=== PATIENT | female | born 1995 | race Caucasian/White ===

== ENCOUNTER 2016-07-08 10:16 | Emergency (ER) | payer MEDICAID, OTHER ==
[2016-07-08 10:24] VITALS: BP 112/73; PULSE 75; RESP 16; TEMP 98.5; O2SAT 99
--- NOTE | 2016-07-08 10:42 | C.PDOC ---
History Of Present Illness 21 yr old female presents to the ER requesting a test. Patient states she took 2 at home test which were positive and just wants to make sure. Patient denies fever, chills, nausea, vomiting, abdominal pain, diarrhea, weakness or numbness. Time Seen by Provider: 07/08/16 10:32 Chief Complaint (Nursing): Medical Clearance History Per: Patient History/Exam Limitations: no limitations Onset/Duration Of Symptoms: Unknown Past Medical History Reviewed: Historical Data, Nursing Documentation, Vital Signs Vital Signs: Last Vital Signs Temp 98.5 F 07/08/16 10:23 Pulse 75 07/08/16 10:23 Resp 16 07/08/16 10:23 BP 112/73 07/08/16 10:23 Pulse Ox 99 07/08/16 11:01 Family History: States: No Known Family Hx - Social History Hx Tobacco Use: Yes (light smoker) Hx Alcohol Use: Yes Hx Substance Use: No - Immunization History Hx Tetanus Toxoid Vaccination: Yes Hx Influenza Vaccination: Yes Hx Pneumococcal Vaccination: No Review Of Systems Except As Marked, All Systems Reviewed And Found Negative. Constitutional: Negative for: Fever, Chills Gastrointestinal: Negative for: Nausea, Vomiting, Abdominal Pain, Diarrhea Neurological: Negative for: Weakness, Numbness Physical Exam - Physical Exam Appears: Well, Non-toxic, No Acute Distress Skin: Warm, Dry Head: Atraumatic, Normacephalic Oral Mucosa: Moist Chest: Symmetrical, No Tenderness Cardiovascular: Rhythm Regular, No Murmur Respiratory: Normal Breath Sounds, No Rales, No Rhonchi, No Stridor, No Wheezing Extremity: Normal ROM, No Swelling Neurological/Psych: Oriented x3, Normal Speech, Normal Motor ED Course And Treatment O2 Sat by Pulse Oximetry: 99 Progress Note: POC was tested positive. Disposition Counseled Patient/Family Regarding: Diagnosis, Need For Followup - Disposition Referrals: Clinic,Med Surg [Primary Care Provider] - Disposition: HOME/ ROUTINE Disposition Time: 10:41 Condition: STABLE Additional Instructions: Follow up with your OBGYN Instructions: (ED) Forms: General Discharge Instructions - Clinical Impression Clinical Impression: - Scribe Statement The provider has reviewed the documentation as recorded by the Raheelibe Magaly James Provider Attestation: All medical record entries made by the Raheelibstefano were at my direction and personally dictated by me. I have reviewed the chart and agree that the record accurately reflects my personal performance of the history, physical exam, medical decision making, and the department course for this patient. I have also personally directed, reviewed, and agree with the discharge instructions and disposition.
== END 2016-07-08 10:47 | disposition home or self-care (01) ==
LOC: C.ER 10:16 → SUPCPDRO 10:16 → C.ER 10:47
DX: Z32.01 Encounter for pregnancy test, result positive (principal)

== ENCOUNTER 2016-08-19 22:56 | Emergency (ER) | payer OTHER ==
[2016-08-19 23:17] VITALS: BP 111/76; PULSE 82; RESP 16; TEMP 98.3
--- NOTE | 2016-08-19 23:23 | C.PDOC ---
History Of Present Illness Patient is a 21 year old female who presents to the ER with a complaint of worsening vaginal bleeding since yesterday. Patient was seen in [facility] yesterday and was diagnosed with a demised. Patient had an US that confirmed an IUP demise at 5-6 weeks; patient had lab results with her. Denies dysuria, abdominal pain or vaginal discharge. Time Seen by Provider: 08/19/16 23:15 Chief Complaint (Nursing): Female Genitourinary History Per: Patient History/Exam Limitations: no limitations Onset/Duration Of Symptoms: Days (Yesterday) Current Symptoms Are (Timing): Still Present Quality Of Discomfort: Unable To Describe Associated Symptoms: denies: Urinary Symptoms, Other (Vaginal discharge, Abdominal pain) Alleviating Factors: None Recent travel outside of the [place]: No Abnormal Vaginal Bleeding: Yes Past Medical History Reviewed: Historical Data, Nursing Documentation, Vital Signs Vital Signs: Last Vital Signs Temp 98.3 F 08/19/16 23:13 Pulse 82 08/19/16 23:13 Resp 16 08/19/16 23:13 BP 111/76 08/19/16 23:13 Pulse Ox 99 08/19/16 23:27 - Medical History PMH: No Chronic Diseases Surgical History: No Surg Hx Family History: States: Unknown Family Hx - Social History Hx Tobacco Use: Yes (light smoker) Hx Alcohol Use: Yes Hx Substance Use: No - Immunization History Hx Tetanus Toxoid Vaccination: Yes Hx Influenza Vaccination: Yes Hx Pneumococcal Vaccination: No Review Of Systems Gastrointestinal: Negative for: Abdominal Pain Genitourinary: Positive for: Vaginal Bleeding. Negative for: Dysuria, Vaginal Discharge Physical Exam - Physical Exam Appears: Non-toxic, No Acute Distress Skin: Normal Color, Warm, Dry Head: Atraumatic, Normacephalic Oral Mucosa: Moist Chest: Symmetrical, No Tenderness Cardiovascular: Rhythm Regular, No Murmur Respiratory: Normal Breath Sounds, No Rales, No Rhonchi, No Wheezing Gastrointestinal/Abdominal: Soft, No Tenderness Pelvic: Other (Deferred) Neurological/Psych: Oriented x3, Normal Speech, Normal Cognition ED Course And Treatment O2 Sat by Pulse Oximetry: 100 (Room air) Pulse Ox Interpretation: Normal Progress Note: Patient declined work up. Medical Decision Making Medical Decision Making: dx with demise of IUP yesterday (US c/w 6 wks of 11 wk etimated gestation ) @ [facility], today with menstrual like bleeding, c/w AB in progress Pt educated and defers repeat w/u at this time. As this is with early demise x 2, salpingography may be indicated. Disposition Doctor Will See Patient In The: Office Counseled Patient/Family Regarding: Studies Performed, Diagnosis - [facility] [Outside] Disposition: HOME/ ROUTINE Disposition Time: 23:23 Condition: GOOD Additional Instructions: Expect heavier and prolonged menstrual-like bleeding Follow-up with outpatient OBGYN As this is potentially 2nd early demise, consider salpingography. Instructions: Spontaneous Miscarriage (ED) - Clinical Impression Clinical Impression: Threatened in early - Scribe Statement The provider has reviewed the documentation as recorded by the Scribe Theron Peace All medical record entries made by the Scribe were at my direction and personally dictated by me. I have reviewed the chart and agree that the record accurately reflects my personal performance of the history, physical exam, medical decision making, and the department course for this patient. I have also personally directed, reviewed, and agree with the discharge instructions and disposition.
[2016-08-20 04:37] VITALS: O2SAT 100
== END 2016-08-19 23:27 | disposition home or self-care (01) ==
LOC: C.ER 22:56
DX: O20.0 Threatened abortion (principal); Z3A.01 Less than 8 weeks gestation of pregnancy

== ENCOUNTER 2016-12-04 01:31 | Emergency (ER) | payer OTHER ==
[2016-12-04 02:00] LABS: RBC URINE 63 /hpf (0-3); URINE BILIRUBIN NEGATIVE (NEGATIVE); URINE BLOOD 2+ (NEGATIVE); URINE COLOR Yellow (YELLOW); URINE GLUCOSE (UA) NORMAL (Normal); URINE KETONE NEGATIVE (NEGATIVE); URINE LEUKOCYTE ESTERASE 3+ Leu/uL (Negative); URINE PROTEIN 1+ mg/dL (NEGATIVE); URINE UROBILINOGEN NORMAL mg/dL (0.2-1.0); WBC URINE 233 /hpf (0-5)
[2016-12-04] MEDS ORDERED: Sodium Chloride 0.9% 1,000 ML IV ONE (02:04)
[2016-12-04] MEDS ORDERED: Sodium Chloride 0.9% 1,000 ML ONE (02:12)
[2016-12-04 02:18] LABS: BASO # 0.1 K/uL (0.0-0.2); BASO % 0.6 % (0.0-2.0); EOS # 0.1 K/uL (0.0-0.7); EOS % 0.7 % (0.0-4.0); HEMATOCRIT 43.3 % (34.0-47.0); LYMPH # 1.7 K/uL (1.0-4.3); MEAN CELL VOLUME 87.4 fL (81.0-99.0); MEAN CORPUSCULAR HEMOGLOBIN 30.6 pg (27.0-31.0); MEAN PLATELET VOLUME 10.1 fL (7.2-11.7); MONO # 0.9 K/uL (0.0-0.8); MONO % 7.1 % (0.0-10.0); NRBC % 0.1 % (0.0-2.0); RED CELL DISTRIBUTION WIDTH 13.8 % (11.5-14.5); WHITE BLOOD COUNT 12.8 K/uL (4.8-10.8)
[2016-12-04 02:25] LABS: CHLORIDE 98 mmol/L (98-107); POTASSIUM 3.9 mmol/L (3.6-5.2); SODIUM 143 mmol/L (132-148)
[2016-12-04 02:27] LABS: BILIRUBIN,TOTAL 0.6 mg/dL (0.2-1.3); GFR AFRICAN-AMERICAN > 60
[2016-12-04 02:28] LABS: ALB/GLOB RATIO 1.2 (1.0-2.1); ALKALINE PHOSPHATASE 93 U/L (38-126); ALT/SGPT 43 U/L (9-52); AST/SGOT 26 U/L (14-36); BLOOD UREA NITROGEN 9 mg/dL (7-17); CARBON DIOXIDE 25 mmol/L (22-30); GLUCOSE,RANDOM 88 mg/dL (65-105); TOTAL PROTEIN 8.9 g/dL (6.3-8.3)
[2016-12-04] MEDS ORDERED: Iodixanol 320 MG/ML 100 ML BOTTLE IV ONE (03:47)
--- NOTE | 2016-12-04 04:26 | CT ---
EXAM: CT Abdomen and Pelvis With Intravenous Contrast CLINICAL HISTORY: 21 years old, female; Pain; Abdominal pain; Generalized; Additional info: Abd pain TECHNIQUE: Axial computed tomography images of the abdomen and pelvis with intravenous contrast. All CT scans at this facility use one or more dose reduction techniques, viz.: automated exposure control; ma/kV adjustment per patient size (including targeted exams where dose is matched to indication; i.e. head); or iterative reconstruction technique. Coronal and sagittal reformatted images were created and reviewed. CONTRAST: 100 mL of [id number] administered intravenously. COMPARISON: No relevant prior studies available. FINDINGS: Lower thorax: No acute findings. ABDOMEN: Liver: Mild fatty infiltration. Gallbladder and bile ducts: No calcified stones. No ductal dilation. Pancreas: No ductal dilation. No mass. Spleen: Mild splenomegaly, AP dimension. Adrenals: No mass. Kidneys and ureters: No mass. No hydronephrosis. Stomach and bowel: No definite mural thickening. No obstruction. Appendix: Normal caliber. No inflammation. PELVIS: Bladder: Borderline bladder wall thickening, up to 5 mm. Incomplete distention, limiting evaluation. Reproductive: Unremarkable as visualized. ABDOMEN and PELVIS: Intraperitoneal space: Trace free fluid within pelvis. No free air. Bones/joints: No acute fracture. Soft tissues: Unremarkable. Vasculature: Unremarkable. No aneurysm. Lymph nodes: Several subcentimeter short axis mesenteric lymph nodes, nonspecific. IMPRESSION: 1. Possible mesenteric adenitis. Clinical correlation is needed. 2. Mild cystitis vs underdistention. Correlate with urinalysis. 3. Incidental/non-acute findings are described above.
--- NOTE | 2016-12-04 04:36 | C.PDOC ---
History Of Present Illness 21 year old female who presents to the ER with a complaint of lower intermittent abdominal pain since Sunday that she describes as sharp and intermittent. Patient states the pain is worse on the right than the left and is associated with dysuria and frequency. Denies fever or vaginal discharge. Time Seen by Provider: 12/04/16 01:34 Chief Complaint (Nursing): Female Genitourinary History Per: Patient History/Exam Limitations: no limitations Onset/Duration Of Symptoms: Days, Intermittent Episodes Current Symptoms Are (Timing): Still Present Location Of Pain/Discomfort: RUQ, LUQ Radiation Of Pain To:: None Quality Of Discomfort: Sharp Associated Symptoms: Urinary Symptoms (Dysuria, frequency). denies: Fever, Other (Vaginal discharge) Exacerbating Factors: None Alleviating Factors: None Recent travel outside of the [place]: No Abnormal Vaginal Bleeding: No Past Medical History Reviewed: Historical Data, Nursing Documentation, Vital Signs Vital Signs: Last Vital Signs Temp 97.8 F 12/04/16 04:48 Pulse 96 H 12/04/16 04:48 Resp 20 12/04/16 04:48 BP 103/70 12/04/16 04:48 Pulse Ox 99 12/04/16 05:16 - Medical History PMH: No Chronic Diseases Surgical History: No Surg Hx Family History: States: Unknown Family Hx - Social History Hx Tobacco Use: Yes (light smoker) Hx Alcohol Use: Yes Hx Substance Use: No - Immunization History Hx Tetanus Toxoid Vaccination: Yes Hx Influenza Vaccination: No Hx Pneumococcal Vaccination: No Review Of Systems Constitutional: Negative for: Fever, Chills Gastrointestinal: Positive for: Abdominal Pain. Negative for: Vomiting, Diarrhea Genitourinary: Positive for: Dysuria, Frequency. Negative for: Vaginal Discharge Physical Exam - Physical Exam Appears: Well, Non-toxic, No Acute Distress Skin: Normal Color, Warm, Dry Head: Atraumatic, Normacephalic Eye(s): bilateral: Normal Inspection, EOMI Nose: Normal Oral Mucosa: Moist Neck: Normal ROM, Supple Chest: Symmetrical, No Tenderness Cardiovascular: Rhythm Regular Respiratory: Normal Breath Sounds, No Rales, No Rhonchi, No Wheezing Gastrointestinal/Abdominal: Soft, Tenderness (Lower quadrant) Back: No CVA Tenderness, No Vertebral Tenderness Neurological/Psych: Oriented x3, Normal Speech, Normal Cognition ED Course And Treatment - Laboratory Results Result Diagrams: 12/04/16 02:14 10/02/17 02:14 O2 Sat by Pulse Oximetry: 99 (Room air) Pulse Ox Interpretation: Normal - CT Scan/US CT abd/pel Other Rad Studies (CT/US): Read By Radiologist, Radiology Report Reviewed CT/US Interpretation: EXAM: CT Abdomen and Pelvis With Intravenous Contrast. CLINICAL HISTORY: 21 years old, female; Pain; Abdominal pain; Generalized; Additional info: Abd pain. TECHNIQUE: Axial computed tomography images of the abdomen and pelvis with intravenous contrast. All CT. scans at this facility use one or more dose reduction techniques, viz.: automated exposure control;. ma/kV adjustment per patient size (including targeted exams where dose is matched to indication; i.e. head); or iterative reconstruction technique. Coronal and sagittal reformatted images were created and reviewed. CONTRAST: 100 mL of [id number] administered intravenously. COMPARISON: No relevant prior studies available. FINDINGS: Lower thorax: No acute findings. ABDOMEN: Liver : Mild fatty infiltration. Gallbladder and bile ducts: No calcified stones. No ductal dilation. Pancreas: No ductal dilation. No mass. Spleen: Mild splenomegaly, AP dimension. Adrenals: No mass. Kidneys and ureters: No mass. No hydronephrosis. Stomach and bowel: No definite mural thickening. No obstruction. Appendix: Normal caliber. No inflammation. PELVIS: Bladder: Borderline bladder wall thickening, up to 5 mm. Incomplete distention, limiting evaluation. Reproductive: Unremarkable as visualized. ABDOMEN and PELVIS: Intraperitoneal space: Trace free fluid within pelvis. No free air. Bones/ joints: No acute fracture. Soft tissues: Unremarkable. Vasculature: Unremarkable. No aneurysm. Lymph nodes: Several subcentimeter short axis mesenteric lymph nodes, nonspecific. IMPRESSION: 1. Possible mesenteric adenitis. Clinical correlation is needed. 2. Mild cystitis vs underdistention. Correlate with urinalysis. 3. Incidental/non-acute findings are described above. Progress Note: Macrobid, toradol, and IV fluids administered. Urinalysis ordered. On reevaluation, pain still persists, CT abd/pel ordered. CT results reviewed with patient. On reevaluation, patient is resting comfortably, abdomen remains soft, and patient is tolerating PO. Patient feels comfortable going home. Patient will be discharged home. Disposition - Disposition Referrals: Non [facility] Provider, [Primary Care Provider] - Disposition: HOME/ ROUTINE Disposition Time: 04:35 Condition: STABLE Additional Instructions: Follow up with your primary medical doctor or clinic in 2-5 days for further evaluation. Take medications as prescribed. Return to the emergency department at any time if symptoms persist or worsen. Prescriptions: Nitrofurantoin Macrocrystals [Macrobid] 1 cap PO BID #14 cap Instructions: Nitrofurantoin Combination (By mouth), Urinary Tract Infection in Women (ED) Forms: [employer] (Ukrainian) - Clinical Impression Clinical Impression: UTI (urinary tract infection), Abdominal pain - Scribe Statement The provider has reviewed the documentation as recorded by the Scribe Theron Peace All medical record entries made by the Scribe were at my direction and personally dictated by me. I have reviewed the chart and agree that the record accurately reflects my personal performance of the history, physical exam, medical decision making, and the department course for this patient. I have also personally directed, reviewed, and agree with the discharge instructions and disposition.
[2016-12-04 04:53] VITALS: BP 103/70; PULSE 96; RESP 20; TEMP 97.8
[2016-12-04 05:11] VITALS: O2SAT 99
== END 2016-12-04 04:54 | disposition home or self-care (01) ==
LOC: SUPCPDRO 01:31 → C.ER 01:31
DX: N39.0 Urinary tract infection, site not specified (principal); R10.31 Right lower quadrant pain
CPT/HCPCS: 74177; 80053; 81001; 83690; 84703; 85025; 87086; 87181; 96374; 99285; J1885; J7040; Q9967

== ENCOUNTER 2017-06-01 21:24 | Emergency (ER) | payer MEDICAID, OTHER ==
[2017-06-01 21:37] VITALS: RESP 20; O2SAT 99
[2017-06-01 23:13] LABS: SQUAMOUS EPITHIAL 3 /hpf (0-5); URINE BACTERIA RARE (<OCC); URINE BILIRUBIN NEGATIVE (NEGATIVE); URINE BLOOD 1+ (NEGATIVE); URINE CLARITY Clear (Clear); URINE COLOR Straw (YELLOW); URINE GLUCOSE (UA) NORMAL (Normal); URINE LEUKOCYTE ESTERASE 1+ Leu/uL (Negative); URINE PROTEIN NEGATIVE (NEGATIVE); URINE UROBILINOGEN NORMAL mg/dL (0.2-1.0)
[2017-06-01 23:14] LABS: HCG,QUALITATIVE URINE POSITIVE (NEGATIVE)
[2017-06-01 23:18] LABS: BASO % 0.4 % (0.0-2.0); EOS % 0.4 % (0.0-4.0); HEMOGLOBIN 12.7 g/dL (11.0-16.0); LYMPH # 1.9 K/uL (1.0-4.3); LYMPH % 17.3 % (20.0-40.0); MEAN CELL VOLUME 89.5 fL (81.0-99.0); MEAN CORPUSCULAR HEMOGLOBIN 32.3 pg (27.0-31.0); MEAN CORPUSCULAR HGB CONC 36.1 g/dL (33.0-37.0); MONO # 0.5 K/uL (0.0-0.8); MONO % 4.8 % (0.0-10.0); NEUT # 8.4 K/uL (1.8-7.0); NEUT % 77.1 % (50.0-75.0); RBC 3.92 Mil/uL (3.80-5.20); RED CELL DISTRIBUTION WIDTH 13.4 % (11.5-14.5); WHITE BLOOD COUNT 10.9 K/uL (4.8-10.8)
[2017-06-01 23:21] LABS: ALB/GLOB RATIO 1.1 (1.0-2.1); ALBUMIN 4.6 g/dL (3.5-5.0); ALT/SGPT 13 U/L (9-52); AST/SGOT 18 U/L (14-36); BLOOD UREA NITROGEN 3 mg/dL (7-17); CALCIUM 9.3 mg/dl (8.6-10.4); GFR AFRICAN-AMERICAN > 60; GFR NON-AFRICAN AMERICAN > 60
[2017-06-01 23:38] VITALS: BP 100/63; PULSE 74; TEMP 98.2
--- NOTE | 2017-06-02 00:03 | C.PDOC ---
History Of Present Illness 21 y/o female and 2 miscarriages, presents to ED with complaints of bilateral inguinal aching pain that began 1 day ago. Patient reports she had normal 12 week Ultrasound. Denies any other physical complaints. Time Seen by Provider: 06/01/17 22:41 Chief Complaint (Nursing): Abdominal Pain History Per: Patient History/Exam Limitations: no limitations Onset/Duration Of Symptoms: Days (1) Current Symptoms Are (Timing): Still Present Quality Of Discomfort: Aching Associated Symptoms: denies: Fever, Chills, Nausea, Vomiting, Diarrhea Exacerbating Factors: None Alleviating Factors: None Recent travel outside of the [place]: No Abnormal Vaginal Bleeding: No Past Medical History Reviewed: Historical Data, Nursing Documentation, Vital Signs Vital Signs: Last Vital Signs Temp 98.2 F 06/01/17 23:36 Pulse 74 06/01/17 23:36 Resp 20 06/01/17 23:36 BP 100/63 06/01/17 23:36 Pulse Ox 99 06/02/17 00:08 - Medical History PMH: No Chronic Diseases Surgical History: No Surg Hx Family History: States: Unknown Family Hx - Social History Hx Tobacco Use: Yes (light smoker) Hx Alcohol Use: Yes Hx Substance Use: No - Immunization History Hx Tetanus Toxoid Vaccination: Yes Hx Influenza Vaccination: No Hx Pneumococcal Vaccination: No Review Of Systems Constitutional: Negative for: Fever, Chills Cardiovascular: Negative for: Chest Pain Respiratory: Negative for: Shortness of Breath Gastrointestinal: Negative for: Nausea, Vomiting, Abdominal Pain, Diarrhea Genitourinary: Positive for: Other (bilateral inguinal ). Negative for: Vaginal Discharge, Vaginal Bleeding Neurological: Negative for: Weakness, Numbness Physical Exam - Physical Exam Appears: Well, Non-toxic, No Acute Distress, Other (gravid belly) Skin: Normal Color, Warm, Dry Head: Atraumatic, Normacephalic Eye(s): bilateral: Normal Inspection Oral Mucosa: Moist Neck: Supple Chest: Symmetrical, No Tenderness Cardiovascular: Rhythm Regular Respiratory: Normal Breath Sounds, No Decreased Breath Sounds, No Rales, No Rhonchi, No Wheezing Gastrointestinal/Abdominal: Soft, No Tenderness Pelvic: No Vaginal Bleeding, No Vaginal Discharge, No Adnexal Tenderness Extremity: Normal ROM, No Tenderness, No Deformity Neurological/Psych: Oriented x3, Normal Speech, Normal Cognition ED Course And Treatment - Laboratory Results Result Diagrams: 06/01/17 23:00 06/01/17 23:00 O2 Sat by Pulse Oximetry: 99 (RA) Pulse Ox Interpretation: Normal - CT Scan/US US OB Other Rad Studies (CT/US): Read By Radiologist, Radiology Report Reviewed CT/US Interpretation: IMPRESSION: Single living 13 weeks 6 days gestation, posterior placenta which is low lying, this. requires additional followup. Presentation is breech. Medical Decision Making Medical Decision Making: Plan: ordered BBK, urinalysis, blood work, and US of OB and Transvaginal. Disposition Doctor Will See Patient In The: Office Counseled Patient/Family Regarding: Studies Performed, Diagnosis - Disposition Referrals: Shaik Maya MD [Staff Provider] - Disposition: HOME/ ROUTINE Disposition Time: 23:00 Condition: GOOD Additional Instructions: continue vitamins continue normal care 13 weeks, 6 days, progressing normally Instructions: Symptoms, Round Ligament Pain Forms: [facility] (Libyan) - Clinical Impression Clinical Impression: Pain of round ligament affecting , antepartum - Scribe Statement The provider has reviewed the documentation as recorded by the Scribe Dionne Rincon All medical record entries made by the Scribe were at my direction and personally dictated by me. I have reviewed the chart and agree that the record accurately reflects my personal performance of the history, physical exam, medical decision making, and the department course for this patient. I have also personally directed, reviewed, and agree with the discharge instructions and disposition.
--- NOTE | 2017-06-02 00:04 | C.PDOC ---
Time Seen by Provider: 06/01/17 22:41 Chief Complaint (Nursing): Abdominal Pain Past Medical History Vital Signs: Last Vital Signs Temp 98.2 F 06/01/17 23:36 Pulse 74 06/01/17 23:36 Resp 20 06/01/17 23:36 BP 100/63 06/01/17 23:36 Pulse Ox 99 06/02/17 00:08 Family History: States: Unknown Family Hx - Social History Hx Tobacco Use: Yes (light smoker) Hx Alcohol Use: Yes Hx Substance Use: No - Immunization History Hx Tetanus Toxoid Vaccination: Yes Hx Influenza Vaccination: No Hx Pneumococcal Vaccination: No ED Course And Treatment - Laboratory Results Result Diagrams: 06/01/17 23:00 06/01/17 23:00 Lab Interpretation: Normal (QHC,097 H, O+) Urine POC: Positive O2 Sat by Pulse Oximetry: 99 Pulse Ox Interpretation: Normal - Other Rad preg US X-Ray: Read By Radiologist (+IUP, +FHT c/w 13W,6D) Reevaluation Time: 00:04 Reassessment Condition: Improved Medical Decision Making Medical Decision Making: normal IUP, probable round ligament pain tylenol recommended and explained. Disposition Doctor Will See Patient In The: Office Counseled Patient/Family Regarding: Studies Performed, Diagnosis - Disposition Referrals: Shaik Maya MD [Staff Provider] - Disposition Time: 00:05 Additional Instructions: continue vitamins continue normal care 13 weeks, 6 days, progressing normally Instructions: Symptoms, Round Ligament Pain Forms: [facility] (Hebrew) - Clinical Impression Clinical Impression: Pain of round ligament affecting , antepartum
--- NOTE | 2017-06-02 17:00 | US ---
PROCEDURE: OB Pelvic Ultrasound HISTORY: 13 wks, h/o miscarriage x 2 LMP: 02/25/2017 COMPARISON: Comparison made with pelvic ultrasound dated 01/24/2016. FINDINGS: UTERUS: Single living intrauterine gestation in breech presentation. The placenta is low lying which requires monitor on the inferior margin of the placenta with respect to the os at interval. Gestational sac: MSD = 6.41 cm pole: CRL = 7.79 cm = 13 weeks 6 days Heart rate: 142 bpm. age (Ultrasound estimated): Idalia-gestational hemorrhage: None. Date of delivery (Ultrasound estimated) : Uterus is anteverted measuring approximately 13.8 5.3 x 9.8 cm. Normal in size and appearance. The placenta is posterior and low lying in location possibly extending over the cervical os. Follow-up OB ultrasound recommended to assess position of the inferior margin of the placenta with respect of the cervical os. CERVIX: Cervix measures approximately 3.28 cm. Long and closed. No cervical abnormality seen. RIGHT OVARY: Measures 2.9 x 2.1 x 3.2 cm. No mass lesion. Normal flow. . There is a cyst in the right ovary measuring 1.4 x 1.3 x 1.2 cm likely representing corpus luteum cyst . LEFT OVARY: Measures 3.1 x 1.6 x 2.6 cm. No solid mass. Normal flow. FREE FLUID: None. OTHER FINDINGS: None. IMPRESSION: Single living intrauterine gestation in breech presentation estimated approximately 13 weeks 6 days 1 week 2 days. The placenta is posterior and low-lying in location possibly extending over the cervical os. Follow-up OB ultrasound recommended to assess position of the inferior margin of the placenta with respect of the cervical os. Preliminary report provided by overnight radiology service
== END 2017-06-02 00:13 | disposition home or self-care (01) ==
LOC: C.ER 21:24
DX: O26.91 Pregnancy related conditions, unspecified, first trimester (principal); R10.2 Pelvic and perineal pain; Z3A.13 13 weeks gestation of pregnancy

== ENCOUNTER 2017-09-18 07:14 | Emergency (ER) | payer MEDICAID, OTHER ==
[2017-09-18 07:31] VITALS: O2SAT 98
[2017-09-18] MEDS ORDERED: Amoxicillin-Clav 875-125 mg Tab PO STA (07:42)
--- NOTE | 2017-09-18 07:44 | C.PDOC ---
History Of Present Illness 22 yo female 29 wks , come in for evaluation of sore throat gradually developed for past 2 days associated with neck swelling. Pt reports, no complication during the current , denies fever, chills, headache, dizziness, drooling, dyspnea, cough, SOB, wheezing, abd. pain, ( contrary to triage), denies vaginal irritation or bleeding. Ambulate to Ed for evaluation, not in any apparent distress. Time Seen by Provider: 09/18/17 07:19 Chief Complaint (Nursing): ENT Problem History Per: Patient Past Medical History Reviewed: Historical Data, Nursing Documentation, Vital Signs Vital Signs: Last Vital Signs Temp 98.6 F 09/18/17 07:24 Pulse 97 H 09/18/17 07:24 Resp 16 09/18/17 07:24 BP 108/72 09/18/17 07:24 Pulse Ox 98 09/18/17 07:24 - Medical History PMH: No Chronic Diseases Family History: States: Unknown Family Hx - Social History Hx Tobacco Use: Yes (light smoker) Hx Alcohol Use: Yes Hx Substance Use: No - Immunization History Hx Tetanus Toxoid Vaccination: Yes Hx Influenza Vaccination: No Hx Pneumococcal Vaccination: No Review Of Systems Except As Marked, All Systems Reviewed And Found Negative. Constitutional: Negative for: Fever, Chills ENT: Positive for: Nose Congestion, Throat Pain, Throat Swelling. Negative for : Ear Pain, Ear Discharge, Mouth Pain Cardiovascular: Negative for: Chest Pain, Palpitations Respiratory: Negative for: Cough, Shortness of Breath, Wheezing Gastrointestinal: Negative for: Nausea, Vomiting, Abdominal Pain, Diarrhea Genitourinary: Negative for: Vaginal Bleeding Musculoskeletal: Negative for: Back Pain Skin: Negative for: Rash, Bruising Neurological: Negative for: Weakness, Numbness, Altered Mental Status, Headache , Dizziness Physical Exam - Physical Exam Appears: Well, Non-toxic, No Acute Distress Skin: Normal Color, Warm, Dry, No Rash Head: Normacephalic Eye(s): bilateral: PERRL Ear(s): Bilateral: Normal Nose: No Flaring, No Discharge Oral Mucosa: Moist, No Drooling Tongue: Normal Appearing Lips: Normal Appearing Throat: Erythema (mod B/L), Exudate (L>R with mild tonsillar enlargement), No Drooling, Other (uvula midline, no edema.) Neck: Trachea Midline, Supple Lymphatic: Adenopathy (mild anterior cervical) Cardiovascular: Rhythm Regular, No Murmur, No JVD Respiratory: No Decreased Breath Sounds, No Accessory Muscle Use, No Stridor, No Wheezing Gastrointestinal/Abdominal: Soft, No Tenderness, No Distention, No Guarding Back: No CVA Tenderness Extremity: Normal ROM, No Pedal Edema, No Deformity, No Swelling Neurological/Psych: Oriented x3, Normal Speech ED Course And Treatment O2 Sat by Pulse Oximetry: 98 Pulse Ox Interpretation: Normal Progress Note: On re-eval, pt is afebrile, hemodynamicaly stable. NOn-toxic, tolerate Po well in Ed. PuslEOx 98% RA. ENT: exam c/w acute tonsillitis. uvual midline, no edema. neck: Supple, (-) meningeal sign. Lungs: CTA B/L, BS equal B/L. Abd: benign. neuorlogicaly intact. Pt advised on course of ds. ref. to f/u with PMD and OB in 2-3 days for re-eval. return to Ed if any worsening or new changes. Disposition Counseled Patient/Family Regarding: Diagnosis, Need For Followup, Rx Given - Disposition Referrals: Shaik Maya MD [Staff Provider] - Disposition: HOME/ ROUTINE Disposition Time: 07:43 Condition: STABLE Additional Instructions: Encourage fluids Take medication as prescribed Gurgle throat with warm salty water twice daily for 5 minutes Follow up with PMD, OB in 1-2 days for re-evaluation. return to ED if any worsening or new changes. Prescriptions: Amoxicillin/Clavulanate [Augmentin 875 MG-125 MG] 1 tab PO BID #14 tab Prednisone [Deltasone] 40 mg PO DAILY #6 tablet Instructions: Sore Throat in Adults, - The Eighth Month - Clinical Impression Clinical Impression: , Tonsillitis
[2017-09-18] MEDS ORDERED: Amoxicillin-Clav 875-125 mg Tab PO ONE (07:48)
[2017-09-18] MEDS ORDERED: Lactated Ringer's 1,000 ML IV ONE (10:19)
[2017-09-18 10:58] LABS: BASO % 0.2 % (0.0-2.0); EOS % 0.1 % (0.0-4.0); HEMOGLOBIN 11.4 g/dL (11.0-16.0); LYMPH # 0.7 K/uL (1.0-4.3); LYMPH % 3.6 % (20.0-40.0); MEAN CORPUSCULAR HEMOGLOBIN 31.8 pg (27.0-31.0); MEAN CORPUSCULAR HGB CONC 34.7 g/dL (33.0-37.0); MEAN PLATELET VOLUME 10.6 fL (7.2-11.7); MONO # 0.4 K/uL (0.0-0.8); MONO % 2.4 % (0.0-10.0); NEUT # 17.5 K/uL (1.8-7.0); NEUT % 93.7 % (50.0-75.0); PLATELET COUNT 200 K/uL (130-400); RBC 3.59 Mil/uL (3.80-5.20); RED CELL DISTRIBUTION WIDTH 13.1 % (11.5-14.5)
[2017-09-18 11:00] LABS: MEAN CELL VOLUME 91.5 fL (81.0-99.0); WHITE BLOOD COUNT 18.7 K/uL (4.8-10.8)
[2017-09-18 11:18] LABS: ALB/GLOB RATIO 1.3 (1.0-2.1); ALBUMIN 4.2 g/dL (3.5-5.0); ALT/SGPT 14 U/L (9-52); AST/SGOT 11 U/L (14-36); BLOOD UREA NITROGEN 3 mg/dL (7-17); CALCIUM 9.2 mg/dl (8.6-10.4); GFR AFRICAN-AMERICAN > 60; GFR NON-AFRICAN AMERICAN > 60
--- NOTE | 2017-09-18 11:19 | OBHP ---
Datetime: 09/18/2017 08:45 IP Adm Impression: , intrauterine IP Chief Complaint Other: abdominal pain IP Admit Plan: Observation/Evaluation Admit Comment, IP Provider: 22 yo female G1 with an IUP at 29 2/7 weeks (EDC 12/02/17) and sent fro ER after pt was seen for sore throat and at time of discharge she complained of mild abdominal pain and was sent to [facility] for evaluation FHT's reactive and reassuring for GA Irregular UC's noted despite po hydration SSE exam with no fluid in vagina and Nitrazine negative Cervix closed, long and high Will continue monitoring, Start IVF, send UA, CBC and CMP for now Pelvic Type - PN: Adequate Extremities - PN: Normal Abdomen - PN: Normal Back - PN: Normal Breast - PN: Not Done Lungs - PN: Normal Heart - PN: Normal Thyroid - PN: Normal Neurologic - PN: Normal HEENT - PN: Normal General - PN: Normal IP Fetus A Comments: Uc's irregular and not very painful FHR - Baseline A Provider: 130 Membranes, Provider: Intact Nitrazine Provider: Negative Vital Signs Provider: Reviewed IP Chief Complaint: evaluation; Other NICHD Variability Prov Fetus A: Moderate 6-25bpm NICHD Accel Fetus A IP Provider: [id number] FHR Category Provider Fetus A: Category I NICHD Decel Fetus A IP Provider: Variable Dilatation, Provider: 0 Effacement, Provider: 0 Station, Provider: floating Genitourinary Exam: Normal DTRs - PN: Normal
[2017-09-18 11:30] LABS: BANDS 13 % (0-2); EOSINOPHIL 1 % (0-4); LYMPHOCYTE 5 % (20-40); MONOCYTE 1 % (0-10); NEUTROPHIL 80 % (50-75); PLATELET ESTIMATE NORMAL (NORMAL); TOTAL CELLS COUNTED 100
[2017-09-18 11:31] LABS: LARGE PLATELETS PRESENT; OVALOCYTES SLIGHT
[2017-09-18 13:21] LABS: SQUAMOUS EPITHIAL 5 /hpf (0-5); URINE BACTERIA RARE (<OCC); URINE BILIRUBIN NEGATIVE (NEGATIVE); URINE BLOOD 1+ (NEGATIVE); URINE CLARITY Clear (Clear); URINE COLOR Yellow (YELLOW); URINE GLUCOSE (UA) NORMAL (Normal); URINE LEUKOCYTE ESTERASE 3+ Leu/uL (Negative); URINE PROTEIN NEGATIVE (NEGATIVE); URINE UROBILINOGEN NORMAL mg/dL (0.2-1.0)
[2017-09-18] MEDS ORDERED: ceFAZolin IV 2 gm in Dextrose 2 GM/50 ML BAG IVPB ONE (14:00)
--- NOTE | 2017-09-18 14:08 | OBDCSUM ---
Datetime: 09/18/2017 13:43 Discharged to, Provider: Home Follow up at, Provider: [facility] Disch Instr Activity: Normal activity Disch Instr Diet: Regular Discharge Instructions, Provider: Routine instructions given Discharge Time: 09/18/2017 13:45 Follow up in weeks, Provider: one week Disch Referrals: None Contraception discussed, Prov: No Disch Activity Restrictions: No exercising; No lifting; Minimize stair-climbing; No sexual activity; Nothing in vagina - [place], tampons, douche Discharge Comment, Provider: Uterine contractions ressolved after IV Hydration and one dose of Terbu harriett SC Received one dose of Ancef IV 2 grams Cx closed and long CBC revealed 13 Bands and patient diagosed with Pharyngitis in the ER and has Rx foe Amoxicillin a nd Prednisone from the ER. Remained Afebrrile D/C home with instructions to f/up at her clinic in 7-10 days prior if needed Increase po water intake Advised to check her temperature with a thermometer Daily or as needed and return to ER if temp eq ual or greater than 101 at any time May take tylenol x2 for Temp less that 101 and may repeat it in 4 hours. Stable and Satisfactory condition D/C home with her ER Prescriptions Discharge Diagnosis Prov Other: Contractions Pharyngitis
[2017-09-18 17:59] VITALS: BP 99/54; PULSE 85; RESP 18; TEMP 98.2
[2017-09-19] MEDS ORDERED: [UNRECOGNIZED DRUG - OTHER] PO SCH (10:00)
[2017-09-19] MEDS ORDERED: FOLIC ACID PO SCH (10:00)
== END 2017-09-18 13:45 | disposition home or self-care (01) ==
LOC: C.EROB 07:14 → C.ER 08:08 → C.EROB 13:45
DX: J03.90 Acute tonsillitis, unspecified (principal); Z3A.29 29 weeks gestation of pregnancy
CPT/HCPCS: 80053; 81001; 85025; 96372; 99284; J3105; J7120